=== PATIENT | female | born 2005 | race Caucasian/White ===

== ENCOUNTER 2024-03-14 17:28 | Emergency (ER) | payer OTHER, SELFPAY ==
[2024-03-14 17:46] VITALS: BP 133/76; PULSE 96; RESP 18; TEMP 36.7; O2SAT 100
--- NOTE | 2024-03-14 18:00 | ED.EAR ---
HPI - Ear Problem General Chief complaint: Ear Stated complaint: Right Earache Time Seen by Provider: 03/14/24 18:01 Source: patient, RN notes reviewed and old records reviewed Mode of arrival: ambulatory Limitations: no limitations History of Present Illness HPI Narrative: 18 year with complaints of right ear pain which just started 2 days ago with the side of face also feeling tender. Patient reports sinus infection last week but didn't take anything for the symptoms, resolved on own,states must of just been a cold then.Patient reports no drainage from the right ear, or any decrease in hearing MD Complaint: ear pain Location: right ear Duration: constant Severity: moderate Discharge from ear: Reports no Treatment prior to arrival: none Related Data Allergies Allergy/AdvReac Type Severity Reaction Status Date / Time Penicillins Allergy Unknown Hives Verified 03/14/24 17:53 [email or web address] Allergy Unknown Verified 03/14/24 17:53 Review of Systems Review of Systems: CONSTITUTIONAL: Denies malaise, chills, sweats, or fever. EYES: Denies visual changes, redness, or discharge. ENT: Reports rhinorrhea, congestion, right sinus pain,right otalgia and no sore throat. CARDIOVASCULAR: Denies chest pain, palpitations, or edema. RESPIRATORY: Reports no cough.? Denies dyspnea. GASTROINTESTINAL: Denies abdominal pain, nausea, vomiting, diarrhea SKIN: Denies rash or itching. MUSCULOSKELETAL: Denies myalgia. NEUROLOGIC: Denies headache. All systems reviewed & are unremarkable except as noted in HPI and below PMFSH Past Medical History Medical History (Updated 03/16/24 @ 16:20 by Shahla Stanley NP) Anxiety and depression Pneumonia Surgical History Surgical History (Updated 03/14/24 @ 18:17 by Shahla Stanley NP) S/P mastectomy, bilateral chest masculanity 2022 Social History Social History (Updated 03/16/24 @ 16:17 by Shahla Stanley NP) Smoking status: Never smoker Alcohol intake: never Substance use type: does not use Living arrangements: with family Gender identity (if verbalized by the patient): Transgender Male Comments At time of signature, agree with nursing past medical, surgical, social and family history. There is no relevant family history pertinent to the presenting complaint Exam Narrative: GENERAL: Well-appearing, well-nourished, and in no acute distress. HEAD: Normocephalic EYES: PERRLA, conjunctivae clear ENT: Nares clear, turbinates edematous and erythematous, clear discharge. Mucous membranes moist.Right TM red.Left TM pearly snow with dull light reflex; no tragal tenderness. Oropharynx erythematous without lesions. Tonsils not enlarged and without exudate, no drooling, no hoarseness, no trismus, uvula midline.some post nasal drainage NECK: Supple. No lymphadenopathy CHEST: Clear to auscultation, breath sounds equal. No wheezing, rhonchi, rales, or stridor. No respiratory distress, speaks in full sentences.no cough noted SAO2 100% on room air HEART: Regular rate and rhythm. No murmur heard. SKIN: Warm, dry, no rash. NEURO: Alert and oriented x3. PSYCH: Normal mood and affect Course Course Emergency Course: Patient is aware of diagnosis, understands and agrees to treatment plan.? Anticipatory guidance given.? Patient agrees to follow-up as directed and is aware of reasons to seek care at the emergency department. Portions of this record may have been created with voice recognition software Level of Care: Express Care Visit Vital Signs Vital signs: Vital Signs Temperature 36.7 C 03/14/24 17:46 Pulse Rate 96 03/14/24 17:46 Respiratory Rate 18 03/14/24 17:46 Blood Pressure 133/76 03/14/24 17:46 Pulse Oximetry 100 03/14/24 17:46 Oxygen Delivery Room Air 03/14/24 17:46 Temperature 36.7 C 03/14/24 17:46 Pulse Rate 96 03/14/24 17:46 Respiratory Rate 18 03/14/24 17:46 Blood Pressure 133/76 03/14/24 17:46
== END 2024-03-14 18:28 | disposition home or self-care (01) ==
PROVIDERS: Emergency Provider Registered Nurse; PCP Pediatrics
DX: H66.91 Otitis media, unspecified, right ear (principal)
CPT/HCPCS: 99213; G0463

== ENCOUNTER 2024-10-24 15:31 | Emergency (ER) | payer SELFPAY ==
[2024-10-24 15:42] VITALS: BP 121/71; PULSE 90; RESP 18; TEMP 36.5; O2SAT 99
--- NOTE | 2024-10-24 16:06 | ED.URI ---
HPI - URI/Sore Throat General Chief Complaint: Upper Respiratory Infection Stated Complaint: SORE THROAT Time Seen by Provider: 10/24/24 16:06 Source: patient, RN notes reviewed and old records reviewed Mode of arrival: ambulatory Limitations: no limitations History of Present Illness HPI Narrative: Patient presents with complaints of sore throat for 2-3 days. Patient reportedly just finished a round of azithromycin that he was prescribed prophylactically after an exposure to whooping cough. Reports that shortly after finishing, he noticed a sore throat with white spots . he reports that he wants to make sure he does not have a super bug ' Related Data Allergies Allergy/AdvReac Type Severity Reaction Status Date / Time Penicillins Allergy Unknown Hives Verified 03/14/24 17:53 [email or web address] Allergy Unknown Verified 03/14/24 17:53 Review of Systems Review of Systems: All systems reviewed & are unremarkable except as noted in HPI and below Constitutional: Constitutional: Reports no additional constitutional complaints ENT: Reports system reviewed and no additional complaints, except as documented, Reports post nasal drip and Reports sore throat Cardiovascular: Cardiovascular: Reports no additional cardiovascular complaints Respiratory: Respiratory: Reports no additional respiratory complaints Gastrointestinal: Gastrointestinal: Reports no additional gastrointestinal complaints [facility] Past Medical History Medical History Pneumonia Anxiety and depression Surgical History Surgical History S/P mastectomy, bilateral chest masculanity 2022 Social History Social History Smoking status: Never smoker Alcohol intake: never Substance use type: does not use Living arrangements: with family Gender identity (if verbalized by the patient): Transgender Male Comments At the time of my signature, I reviewed and agree with the nursing past medical, surgical, social, and family history. There is no relevant family history pertinent to the patient complaint. Exam Const: General: cooperative, no acute distress, alert and awake Orientation/consciousness: oriented to person, oriented to place and oriented to time HENMT: Head: normal to inspection Resp: Effort & Inspection: normal respiratory effort and able to speak in complete sentences Auscultation: clear to auscultation bilaterally, no crackles, no rales, no rhonchi and no wheezes Cardio: Palpation: normal PMI Rate: regular rate Rhythm: regular rhythm Heart sounds: S1 normal heart sound present and S2 normal heart sound present Neuro: General: oriented to person, oriented to place and oriented to time Cranial nerves: Yes CN's II-XII intact bilaterally Psych: Appearance: grossly normal Thought process: Normal thought process present Insight: Good insight present (Psych) Judgement: Good judgement present (Psych) Course Course Level of Care: Express Care Visit Vital Signs Vital signs: Vital Signs Temperature 97.7 F 10/24/24 15:42 Pulse Rate 90 10/24/24 15:42 Respiratory Rate 18 10/24/24 15:42 Blood Pressure 121/71 10/24/24 15:42 Pulse Oximetry 99 10/24/24 15:42 Oxygen Delivery Room Air 10/24/24 15:42 Temperature 97.7 F 10/24/24 15:42 Pulse Rate 90 10/24/24 15:42 Respiratory Rate 18 10/24/24 15:42 Blood Pressure 121/71 10/24/24 15:42 Pulse Oximetry 99 10/24/24 15:42 Oxygen Delivery Room Air 10/24/24 15:42 Reviewed MDM - URI/Sore Throat MDM Narrative Medical decision making narrative: negative strep, culture pending. Normal physical exam. Patient advised to treat symptoms with [id number] medications per package instructions. Discharge instructions reviewed with patient, as well as provided in writing per nursing staff. The instructions also include specific and strict return/GO TO THE ER as well as f/u information. All questions have been answered, and the patient deny any further questions with discharge and discharge plan. Some parts of this dictation were generated by voice recognition software and may contain typographical and/or grammatical inaccuracies. Discharge Plan Discharge Clinical Impression: Upper respiratory infection Qualifiers: URI type: unspecified viral URI Qualified Code(s): J06.9 - Acute upper respiratory infection, unspecified Patient Disposition: Home, Self-Care Condition: Stable Instructions: Antibiotic Form, Cold Symptoms (ED) Additional Instructions: Take [id number] medications to treat her symptoms. Follow with primary care provider. Emergency department for new or worse symptoms Patient Language: French Prescriptions: No Action azithromycin 250 mg tablet See Rx Instructions .ROUTE .COMPLEX Qty: 6 0RF Rx Instructions: For 250 mg dose pack: take 500 mg today (day 1), then 250 mg for 4 days (days 2-5) Follow-up/Referrals: PHYSICIAN,HYPERBARIC WELDER DIVER [Primary Care Provider] - Time of Disposition: 16:31
[2024-10-24 16:34] LABS: EDSTREPNEGPOS1 Negative (Negative)
== END 2024-10-24 16:38 | disposition home or self-care (01) ==
PROVIDERS: Emergency Provider Nurse Practitioner Family
DX: J06.9 Acute upper respiratory infection, unspecified (principal); F64.0 Transsexualism
CPT/HCPCS: 87081; 87880; 99213; G0463